=== PATIENT | female | born 1945 | race African-American/Black ===

== ENCOUNTER 2019-02-04 13:33 | Inpatient (IN) | payer OTHER ==
[2019-02-04 13:57] VITALS: BMI 44.1
--- NOTE | 2019-02-04 13:57 | PDOC ---
History of Present Illness - General Chief Complaint: Dialysis Shunt Problem Stated Complaint: FISTULA PROBLEM Time Seen by Provider: 02/04/19 13:56 - History of Present Illness Initial Comments: 02/04/19 14:14 The patient is a 73 year old female with a history of HTN, DM, HLD, ESRD on Dialysis (MWF) who presents for evaluation of a non-functional AV fistula. The patient reports that they attempted dialysis 1 day ago on Wednesday and were unable to access her fistula. She went for de-clotting and they attempted dialysis today and were still unable to access her fistula prompting her presentation to the ED for further evaluation. She states her last dialysis was 4 days ago on Wednesday. She otherwise denies fevers, chills, SOB, chest pain, nausea, vomiting, abdominal pain, or changes with bowel movements. Past History - Past Medical History Allergies/Adverse Reactions: Allergies Allergy/AdvReac Type Severity Reaction Status Date / Time No Known Allergies Allergy Verified 02/04/19 13:43 Home Medications: Ambulatory Orders Acetaminophen [Tylenol -] 1,000 mg PO TID PRN 02/04/19 Allopurinol [Zyloprim -] 100 mg PO ASDIR 02/04/19 Aspirin 81 mg PO DAILY 02/04/19 Calcium Acetate [Phoslo -] 667 mg PO TIDCM 02/04/19 Carvedilol [Coreg -] 6.25 mg PO BID 02/04/19 Folic Acid 0.8 mg PO DAILY 02/04/19 Heparin - 5,000 unit SQ BID 02/04/19 Insulin Lispro [Humalog] 0 unit SQ ASDIR 02/04/19 Oxycodone HCl 5 mg PO BID PRN 02/04/19 Pantoprazole Sodium [Protonix -] 40 mg PO DAILY 02/04/19 Sennosides [Senna Laxative] 2 tab PO DAILY 02/04/19 COPD: No Diabetes: Yes GI Disorders: Yes (gerd) Disorders: Yes (dialysis) HTN: Yes - Suicide/Smoking/Psychosocial Hx Smoking History: Never smoked Review of Systems - Review of Systems Comments:: 02/04/19 14:27 Constitutional: No fevers, chills, fatigue, malaise HEENT: No Rhinorrhea, nasal congestion, visual changes Cardiovascular: No chest pain, syncope, palpitations, lightheadedness Respiratory: No Cough, SOB, Hemoptysis, Gastrointestinal: No Abdominal pain, Nausea, Vomiting, Constipation, Diarrhea, Melena Genitourinary: No Dysuria, Frequency, Urgency, Hesitancy, Hematuria, Flank pain Musculoskeletal: No Myalgia, arthralgia Skin: No rashes, itching, bruising, pallor Neurologic: No Headache, Dizziness, Numbness, Weakness, or Tingling Psychiatric: No Hallucinations. No SI or HI *Physical Exam - Vital Signs Last Vital Signs Temp Pulse Resp BP Pulse Ox 97.9 F 78 18 97/62 100 02/04/19 13:53 02/04/19 13:53 02/04/19 13:53 02/04/19 13:56 02/04/19 13:53 - Physical Exam Comments: 02/04/19 14:28 General Appearance: Nourished. No Apparent Distress HEENT: No Pharyngeal Erythema, Tonsillar Exudate, Tonsillar Erythema Neck: No Cervical Lymphadenopathy Respiratory/Chest: Lungs Clear, Normal Breath Sounds. No Crackles, Rales, Rhonchi, Wheezing Cardiovascular: Regular Rhythm, Regular Rate. No Murmur, Gallops, Rubs Gastrointestinal/Abdominal: Normal Bowel Sounds, Soft. No Guarding, Rebound, Tenderness Musculoskeletal: No CVA Tenderness Extremity: Left AV fistula without palpable thrill. Normal Capillary Refill Integumentary: Normal Color, Dry, Warm Neurologic: Fully Oriented, Alert, Normal Mood/Affect, Normal Response, Heart Score/ECG Review #1 ECG reviewed & interpreted by me at: 14:29 General ECG Interpretation: Sinus Rhythm, Normal Rate, No acute ischemic changes Compared to previous ECG there are: Previous ECG unavail 02/04/19 14:29 1st degree AV block Left axis deviation Left Bundle Branch Block HR 72 QRS 162 QTc 540 ED Treatment Course - LABORATORY CBC & Chemistry Diagram: 02/04/19 15:15 02/04/19 15:15 Medical Decision Making - Medical Decision Making 02/04/19 14:30 The patient is a 73 year old female with a history of HTN, DM, HLD, ESRD on Dialysis (MWF) who presents for evaluation of a non-functional AV fistula. Given the patient's history and physical exam, it is likely the patient's AV fistula is non-functional. We will obtain a cbc, cmp, coags, ekg, chest plain film, duplex US to evaluate further. The patient will likely require admission for further management. We will continue to monitor and reassess while here in the ED. 02/04/19 15:38 US demonstrates a Patent AV fistula as read by our radiologist. We discussed the case with Dr. Badillo and Dr. Schroeder who agree that the patient can attempt to have dialysis today. We discussed the case with Dr. Reyez who accepted the patient for admission. We will continue to follow up on the patient's lab results. 02/04/19 16:34 CBC is unremarkable. Creatinine is elevated to 6.1. Potassium is unremarkable. *DC/Admit/Observation/Transfer Diagnosis at time of Disposition: AV fistula occlusion Qualifiers: Encounter type: initial encounter Qualified Code(s): T82.898A - Other specified complication of vascular prosthetic devices, implants and grafts, initial encounter - Discharge Dispostion Condition at time of disposition: Stable Decision to Admit order: Yes - Referrals - Patient Instructions - Post Discharge Activity
--- NOTE | 2019-02-04 14:43 | PDOC ---
Attending Attestation - Resident Resident Name: Bruce Granados - ED Attending Attestation I have performed the following: I have examined & evaluated the patient, The case was reviewed & discussed with the resident, I agree w/resident's findings & plan, Exceptions are as noted - Physicial Exam PE: 02/04/19 14:41 awake alert lungs clear bilaterally heart rrr no mrg abd soft nd nt obese. ext wwp. lue fistual no palp bruit or thrill. nuero alert oriented x 3. - Medical Decision Making 02/04/19 14:41 73 yo h/o esrd ( m/w/f) htn dm aicd, anemia, last dialysis was 4 days ago, with clotted upper ext fistula. tried to declot yesterday, was unable. no c/o sob no chest pain. on exam pt normal lung exam. fistual no bruit. differential: fluid overload, hyperK, anemia, clotted fistula. plan labs us access, cxr ekg. will d/w dr castaneda, on vasc surgery, and renal. pt will require admission for access and dialysis. <Billie Quinonez - Last Filed: 02/04/19 14:44> - HPI HPI: 02/04/19 14:44 The patient is a 73 year old male, with a significant past medical history of HTN, DM, HLD, and ESRD on Dialysis (M,W,F), who presents to the emergency department for an issue with her AV fistula. As per patient, at the dialysis facility on Wednesday they attempted to give her dialysis but, they could not access her port. He denies any recent chest pain or shortness of breath. He denies any recent dysuria, frequency, urgency or hematuria. Allergies: NKDA Last Dialysis: 02/01 Documentation prepared by Tracy Lezama, acting as medical record specialist for Billie Quinonez MD. <Tracy Lezama - Last Filed: 02/04/19 14:45> Heart Score/ECG Review #1 General ECG Interpretation: Sinus Rhythm, Normal Intervals, No acute ischemic changes Compared to previous ECG there are: Other (TWI I, AVLF, LBBB, left axis. no old comparison ekg) <Billie Quinonez - Last Filed: 02/04/19 14:44>
[2019-02-04 15:25] LABS: BASO % 2.4 % (0-2.0); HEMATOCRIT 40.8 % (32.4-45.2); HEMOGLOBIN 13.5 GM/dL (10.7-15.3); LYMPH % 33.7 % (8-40); MCH 28.6 pg (25.7-33.7); MEAN CELL VOLUME 86.7 fl (80-96); MEAN PLT VOLUME 8.4 fl (7.5-11.1); MONO % 6.9 % (3.8-10.2); PLATELET COUNT 315 K/MM3 (134-434); RDW 15.8 % (11.6-15.6)
[2019-02-04 15:49] LABS: INR 0.92 (0.83-1.09); PROTHROMBIN TIME (PATIENT) 10.8 SEC (9.7-13.0)
[2019-02-04 15:52] LABS: ACTIVATED PTT 34.6 SECONDS (25.2-36.5); ALBUMIN 3.6 g/dl (3.4-5.0); ALK PHOS 178 U/L (45-117); ANION GAP 9 MMOL/L (8-16); BILIRUBIN,TOTAL 0.6 mg/dL (0.2-1); BLOOD UREA NITROGEN 55 mg/dL (7-18); CALCIUM 9.7 mg/dL (8.5-10.1); CHLORIDE 96 mmol/L (98-107); CO2 30 mmol/L (21-32); CREATININE 6.1 mg/dL (0.55-1.3); GLUCOSE,RANDOM 128 mg/dL (74-106); SGOT/AST 14 U/L (15-37); SGPT/ALT 15 U/L (13-61); SODIUM 135 mmol/L (136-145); TOT PROT 7.4 g/dl (6.4-8.2)
--- NOTE | 2019-02-04 16:55 | CONSULT ---
Consult Consult Specialty:: Nephrology Reason for Consultation:: ESRD - History of Present Illness Chief Complaint: sent in for clotted access History of Present Illness: Pt is a 73 year old female with pmhx of ESRD, DM, HTN, and obesity who was sent in for inability to access her av fistula. She was last dialyzed on Wednesday. She went for a thrombectomy yesterday however the center was not able to canulate her today. She says she feels well. She follows with Dr Erazo in [place]. She denies fevers or chills. She denies shortness of breath. - History Source History Provided By: Patient, Medical Record - Past Medical History Cardio/Vascular: Yes: HTN, Hyperlipdemia Gastrointestinal: Yes: GERD Renal/: Yes: Renal Failure, Hemodialysis Rheumatology: Yes: Gout Endocrine: Yes: Diabetes Mellitus - Smoking History Smoking history: Never smoked Home Medications - Allergies Allergies/Adverse Reactions: Allergies Allergy/AdvReac Type Severity Reaction Status Date / Time No Known Allergies Allergy Verified 02/04/19 13:43 - Home Medications Home Medications: Ambulatory Orders Acetaminophen [Tylenol -] 1,000 mg PO TID PRN 02/04/19 Allopurinol [Zyloprim -] 100 mg PO ASDIR 02/04/19 Aspirin 81 mg PO DAILY 02/04/19 Calcium Acetate [Phoslo -] 667 mg PO TIDCM 02/04/19 Carvedilol [Coreg -] 6.25 mg PO BID 02/04/19 Folic Acid 0.8 mg PO DAILY 02/04/19 Heparin - 5,000 unit SQ BID 02/04/19 Insulin Lispro [Humalog] 0 unit SQ ASDIR 02/04/19 Oxycodone HCl 5 mg PO BID PRN 02/04/19 Pantoprazole Sodium [Protonix -] 40 mg PO DAILY 02/04/19 Sennosides [Senna Laxative] 2 tab PO DAILY 02/04/19 Family Disease History - Family Disease History Family History: Denies Review of Systems - Review of Systems Constitutional: reports: No Symptoms Eyes: reports: No Symptoms HENT: reports: No Symptoms Neck: reports: No Symptoms Cardiovascular: reports: No Symptoms Respiratory: reports: No Symptoms Gastrointestinal: reports: No Symptoms Genitourinary: reports: No Symptoms Musculoskeletal: reports: No Symptoms Integumentary: reports: No Symptoms Neurological: reports: No Symptoms Endocrine: reports: No Symptoms Hematology/Lymphatic: reports: No Symptoms Psychiatric: reports: No Symptoms Physical Exam Vital Signs: Vital Signs Temperature 97.9 F 02/04/19 13:53 Pulse Rate 78 02/04/19 13:53 Respiratory Rate 18 02/04/19 13:53 Blood Pressure 97/62 02/04/19 13:56 O2 Sat by Pulse Oximetry (%) 100 02/04/19 13:53 Constitutional: Yes: Calm Eyes: Yes: Conjunctiva Clear HENT: Yes: Atraumatic Neck: Yes: Supple Cardiovascular: Yes: S1, S2 Respiratory: Yes: CTA Bilaterally Gastrointestinal: Yes: Soft, Abdomen, Obese Musculoskeletal: Yes: WNL Extremities: Yes: Other (fistula with thrill and bruit) Edema: No Neurological: Yes: Oriented Psychiatric: Yes: Oriented Labs: CBC, BMP 02/04/19 15:15 02/04/19 15:15 Laboratory Tests 02/04/19 02/04/19 15:15 15:15 WBC 7.0 Hgb 13.5 Sodium 135 L Potassium 4.0 BUN 55 H Creatinine 6.1 H Imaging - Results Ultrasound: Report Reviewed Problem List - Problems (1) ESRD (end stage renal disease) Code(s): N18.6 - END STAGE RENAL DISEASE (2) Diabetes mellitus Code(s): E11.9 - TYPE 2 DIABETES MELLITUS WITHOUT COMPLICATIONS (3) AV fistula occlusion Code(s): T82.898A - OTH COMPLICATION OF VASCULAR PROSTH DEV/GRFT, INIT Qualifiers: Encounter type: initial encounter Qualified Code(s): T82.898A - Other specified complication of vascular prosthetic devices, implants and grafts, initial encounter Assessment/Plan Current Medications Generic Name Dose Route Start Last Admin Trade Name Freq PRN Reason Stop Dose Admin Aspirin 81 mg 02/05/19 10:00 Asa - PO DAILY MUSA Calcium Acetate 667 mg 02/04/19 17:30 Phoslo - PO TIDCM MSUA Carvedilol 6.25 mg 02/04/19 22:00 Coreg - PO BID MUSA Heparin Sodium (Porcine) 5,000 unit 02/04/19 22:00 Heparin - SQ BID MUSA Oxycodone HCl 5 mg 02/04/19 16:18 Roxicodone - PO Q12H PRN PAIN LEVEL 4 - 6 Pantoprazole Sodium 40 mg 02/05/19 10:00 Protonix - PO DAILY MUSA Senna 2 tab 02/05/19 10:00 Senna - PO DAILY MUSA Impression 1. ESRD 2. fistula malfunction 3. HTN 4. DM 5. gerd 6. HLD 7. obesity Plan - vascular eval - fistula has bruit and appear patent on ultrasound - renal diet once eating - discussed with ER - no indication for acute HD - repeat labs in am
[2019-02-04] MEDS: CALCIUM ACETATE 667 MG CAPSULE (FP) PO SCH (18:13)
[2019-02-04] MEDS ORDERED: CARVEDILOL 3.125 MG TABLET (FP) ONE (21:17)
[2019-02-04] MEDS ORDERED: HEPARIN NA (PORCINE) 5,000 UNITS/ML 1ML VIAL ONE (21:18)
[2019-02-04] MEDS: CARVEDILOL 6.25 MG TABLET (FP) PO SCH (21:34)
[2019-02-04] MEDS: HEPARIN NA (PORCINE) 5,000 UNITS/ML 1ML VIAL SQ SCH (21:34)
[2019-02-05] MEDS: CALCIUM ACETATE 667 MG CAPSULE (FP) PO SCH ×3 (08:45→17:53)
--- NOTE | 2019-02-05 10:30 | HP ---
Admitting History and Physical - Primary Care Physician PCP: Kellen Moran - Admission Chief Complaint: inability to access AVF History of Present Illness: ER HISTORY - History of Present Illness Initial Comments: 02/04/19 14:14 The patient is a 73 year old female with a history of HTN, DM, HLD, ESRD on Dialysis (MWF) who presents for evaluation of a non-functional AV fistula. The patient reports that they attempted dialysis 1 day ago on Wednesday and were unable to access her fistula. She went for de-clotting and they attempted dialysis today and were still unable to access her fistula prompting her presentation to the ED for further evaluation. She states her last dialysis was 4 days ago on Wednesday. She otherwise denies fevers, chills, SOB, chest pain, nausea, vomiting, abdominal pain, or changes with bowel movements. Pt examined by me on the floors Last dialysis was this past Wednesday - she missed her Wednesday dialysis due to inability to access the AVF No SOB, chest pain She is in [facility] for short term rehab and she tells me that she was due to for discharge home tomorrow History Source: Patient Limitations to Obtaining History: No Limitations - Past Medical History Cardiovascular: Yes: HTN, Hyperlipdemia Gastrointestinal: Yes: GERD Renal/: Yes: Renal Failure, Hemodialysis ...: No Rheumatology: Yes: Gout Endocrine: Yes: Diabetes Mellitus - Smoking History Smoking history: Never smoked - Alcohol/Substance Use Hx Alcohol Use: No Home Medications - Allergies Allergies/Adverse Reactions: Allergies Allergy/AdvReac Type Severity Reaction Status Date / Time No Known Allergies Allergy Verified 02/04/19 13:43 - Home Medications Home Medications: Ambulatory Orders Acetaminophen [Tylenol -] 1,000 mg PO TID PRN 02/04/19 Allopurinol [Zyloprim -] 100 mg PO ASDIR 02/04/19 Aspirin 81 mg PO DAILY 02/04/19 Calcium Acetate [Phoslo -] 667 mg PO TIDCM 02/04/19 Carvedilol [Coreg -] 6.25 mg PO BID 02/04/19 Folic Acid 0.8 mg PO DAILY 02/04/19 Heparin - 5,000 unit SQ BID 02/04/19 Insulin Lispro [Humalog] 0 unit SQ ASDIR 02/04/19 Oxycodone HCl 5 mg PO BID PRN 02/04/19 Pantoprazole Sodium [Protonix -] 40 mg PO DAILY 02/04/19 Sennosides [Senna Laxative] 2 tab PO DAILY 02/04/19 Review of Systems - Review of Systems Constitutional: denies: Chills Cardiovascular: denies: Chest Pain, Palpitations Physical Examination Vital Signs: Vital Signs Temperature 97.4 F L 02/05/19 06:04 Pulse Rate 67 02/05/19 06:04 Respiratory Rate 18 02/05/19 06:04 Blood Pressure 126/61 02/05/19 06:04 O2 Sat by Pulse Oximetry (%) 96 02/04/19 21:00 Constitutional: Yes: No Distress, Calm Cardiovascular: Yes: Regular Rate and Rhythm Respiratory: Yes: CTA Bilaterally Gastrointestinal: Yes: Normal Bowel Sounds, Soft, Abdomen, Obese. No: Tenderness Extremities: Yes: Other (left AVF +) Edema: No Psychiatric: Yes: Alert, Oriented Labs: CBC, BMP 02/04/19 15:15 02/04/19 15:15 Imaging - Results Chest X-ray: Image Reviewed (no congestion or infiltrate) EKG: Image Reviewed (Sinus) Problem List - Problems (1) AV fistula occlusion Code(s): T82.898A - H COMPLICATION OF VASCULAR PROSTH DEV/GRFT, INIT Qualifiers: Encounter type: initial encounter Qualified Code(s): T82.898A - Other specified complication of vascular prosthetic devices, implants and grafts, initial encounter (2) Diabetes mellitus Code(s): E11.9 - TYPE 2 DIABETES MELLITUS WITHOUT COMPLICATIONS (3) ESRD (end stage renal disease) Code(s): N18.6 - END STAGE RENAL DISEASE Assessment/Plan PLAN Doppler shows AVF is patent Renal eval noted will be dialysed tomorrow PT eval - to assess if pt can be discharged home tomorrow after dialysis
[2019-02-05] MEDS: HEPARIN NA (PORCINE) 5,000 UNITS/ML 1ML VIAL SQ SCH ×2 (11:32→21:49)
[2019-02-05] MEDS: SENNOSIDES 8.6MG TABLET (FP) PO SCH (11:32)
[2019-02-05] MEDS: PANTOPRAZOLE 40 MG TABLET (FP) PO SCH (11:32)
[2019-02-05] MEDS: ASPIRIN 81 MG CHEWABLE TABLETS PO SCH (11:32)
[2019-02-05] MEDS: CARVEDILOL 6.25 MG TABLET (FP) PO SCH ×2 (11:32→21:49)
[2019-02-05 13:38] LABS: ANION GAP 10 MMOL/L (8-16); BLOOD UREA NITROGEN 62 mg/dL (7-18); CALCIUM 9.5 mg/dL (8.5-10.1); CHLORIDE 97 mmol/L (98-107); CO2 29 mmol/L (21-32); CREATININE 6.7 mg/dL (0.55-1.3); GLUCOSE,RANDOM 155 mg/dL (74-106); POTASSIUM 4.1 mmol/L (3.5-5.1); SODIUM 136 mmol/L (136-145)
[2019-02-05] MEDS: oxyCODONE HCL 5 MG TABLET PO PRN (15:24)
--- NOTE | 2019-02-05 17:59 | PN ---
Progress Note, Physician History of Present Illness: Pt seen and examined at bedside. She is awake and alert. She denies shortness of breath or palpitations. - Current Medication List Current Medications: Active Medications Aspirin (Asa -) 81 mg PO DAILY [facility] Last Admin: 02/05/19 11:32 Dose: 81 mg Calcium Acetate (Phoslo -) 667 mg PO TIDCM [facility] Last Admin: 02/05/19 17:53 Dose: 667 mg Carvedilol (Coreg -) 6.25 mg PO BID [facility] Last Admin: 02/05/19 11:32 Dose: 6.25 mg Heparin Sodium (Porcine) (Heparin -) 5,000 unit SQ BID [facility] Last Admin: 02/05/19 11:32 Dose: 5,000 unit Oxycodone HCl (Roxicodone -) 5 mg PO Q12H PRN PRN Reason: PAIN LEVEL 4 - 6 Last Admin: 02/05/19 15:24 Dose: 5 mg Pantoprazole Sodium (Protonix -) 40 mg PO DAILY [facility] Last Admin: 02/05/19 11:32 Dose: 40 mg Senna (Senna -) 2 tab PO DAILY [facility] Last Admin: 02/05/19 11:32 Dose: 2 tab - Objective Vital Signs: Vital Signs Temperature 97.5 F L 02/05/19 14:29 Pulse Rate 70 02/05/19 14:29 Respiratory Rate 18 02/05/19 14:29 Blood Pressure 105/54 L 02/05/19 14:29 O2 Sat by Pulse Oximetry (%) 96 02/05/19 09:00 Constitutional: Yes: Calm Eyes: Yes: Conjunctiva Clear HENT: Yes: Atraumatic Neck: Yes: Supple Cardiovascular: Yes: S1, S2 Respiratory: Yes: CTA Bilaterally Gastrointestinal: Yes: Soft, Abdomen, Obese Musculoskeletal: Yes: WNL Extremities: Yes: Other (left arm fistula with thrill and bruit, faint) Neurological: Yes: Oriented Psychiatric: Yes: Oriented Labs: CBC, BMP 02/04/19 15:15 02/05/19 12:13 INR, PTT INR 0.92 (0.83-1.09) 02/04/19 15:15 Problem List - Problems (1) ESRD (end stage renal disease) Code(s): N18.6 - END STAGE RENAL DISEASE (2) Diabetes mellitus Code(s): E11.9 - TYPE 2 DIABETES MELLITUS WITHOUT COMPLICATIONS (3) AV fistula occlusion Code(s): T82.898A - OTH COMPLICATION OF VASCULAR PROSTH DEV/GRFT, INIT Qualifiers: Encounter type: initial encounter Qualified Code(s): T82.898A - Other specified complication of vascular prosthetic devices, implants and grafts, initial encounter Assessment/Plan Current Medications Generic Name Dose Route Start Last Admin Trade Name Freq PRN Reason Stop Dose Admin Aspirin 81 mg 02/05/19 10:00 02/05/19 11:32 Asa - PO 81 mg DAILY MUSA Administration Calcium Acetate 667 mg 02/04/19 17:30 02/05/19 17:53 Phoslo - PO 667 mg TIDCM MUSA Administration Carvedilol 6.25 mg 02/04/19 22:00 02/05/19 11:32 Coreg - PO 6.25 mg BID MUSA Administration Heparin Sodium (Porcine) 5,000 unit 02/04/19 22:00 02/05/19 11:32 Heparin - SQ 5,000 unit BID MUSA Administration Oxycodone HCl 5 mg 02/04/19 16:18 02/05/19 15:24 Roxicodone - PO 5 mg Q12H PRN Administration PAIN LEVEL 4 - 6 Pantoprazole Sodium 40 mg 02/05/19 10:00 02/05/19 11:32 Protonix - PO 40 mg DAILY MUSA Administration Senna 2 tab 02/05/19 10:00 02/05/19 11:32 Senna - PO 2 tab DAILY MUSA Administration Impression 1. ESRD 2. fistula malfunction 3. HTN 4. DM 5. gerd 6. HLD 7. obesity Plan - potassium stable - volume status is stable - pending vascular input - will likely need HD tomorrow - repeat labs in am - npo past midnight
[2019-02-06 07:31] LABS: BASO % 1.3 % (0-2.0); EOS % 4.6 % (0-4.5); HEMATOCRIT 34.9 % (32.4-45.2); HEMOGLOBIN 11.3 GM/dL (10.7-15.3); LYMPH % 35.5 % (8-40); MCH 27.9 pg (25.7-33.7); MCHC 32.3 g/dl (32.0-36.0); MEAN CELL VOLUME 86.5 fl (80-96); MEAN PLT VOLUME 8.8 fl (7.5-11.1); MONO % 7.3 % (3.8-10.2); NEUT % 51.3 % (42.8-82.8); PLATELET COUNT 293 K/MM3 (134-434); RBC 4.03 M/mm3 (3.60-5.2); RDW 16.1 % (11.6-15.6); WHITE BLOOD COUNT 6.6 K/mm3 (4.0-10.0)
[2019-02-06 07:59] LABS: ANION GAP 8 MMOL/L (8-16); BLOOD UREA NITROGEN 66 mg/dL (7-18); CHLORIDE 100 mmol/L (98-107); CO2 29 mmol/L (21-32); GLUCOSE,RANDOM 140 mg/dL (74-106); POTASSIUM 4.1 mmol/L (3.5-5.1); SODIUM 137 mmol/L (136-145)
[2019-02-06] MEDS: CALCIUM ACETATE 667 MG CAPSULE (FP) PO SCH ×3 (08:24→17:11)
[2019-02-06 09:07] LABS: CREATININE 7.5 mg/dL (0.55-1.3)
--- NOTE | 2019-02-06 09:11 | CONSULT ---
Consult Consult Specialty:: Vascualar Surgery Reason for Consultation:: Evalauation of left avg - Past Medical History Cardio/Vascular: Yes: HTN, Hyperlipdemia Gastrointestinal: Yes: GERD Renal/: Yes: Renal Failure, Hemodialysis ...: No Rheumatology: Yes: Gout Endocrine: Yes: Diabetes Mellitus - Alcohol/Substance Use Hx Alcohol Use: No - Smoking History Smoking history: Never smoked Home Medications - Allergies Allergies/Adverse Reactions: Allergies Allergy/AdvReac Type Severity Reaction Status Date / Time No Known Allergies Allergy Verified 02/04/19 13:43 - Home Medications Home Medications: Ambulatory Orders Acetaminophen [Tylenol -] 1,000 mg PO TID PRN 02/04/19 Allopurinol [Zyloprim -] 100 mg PO ASDIR 02/04/19 Aspirin 81 mg PO DAILY 02/04/19 Calcium Acetate [Phoslo -] 667 mg PO TIDCM 02/04/19 Carvedilol [Coreg -] 6.25 mg PO BID 02/04/19 Folic Acid 0.8 mg PO DAILY 02/04/19 Heparin - 5,000 unit SQ BID 02/04/19 Insulin Lispro [Humalog] 0 unit SQ ASDIR 02/04/19 Oxycodone HCl 5 mg PO BID PRN 02/04/19 Pantoprazole Sodium [Protonix -] 40 mg PO DAILY 02/04/19 Sennosides [Senna Laxative] 2 tab PO DAILY 02/04/19 Review of Systems - Review of Systems Constitutional: reports: No Symptoms Eyes: reports: No Symptoms HENT: reports: No Symptoms Neck: reports: No Symptoms Cardiovascular: reports: No Symptoms Respiratory: reports: No Symptoms Gastrointestinal: reports: No Symptoms Genitourinary: reports: No Symptoms Musculoskeletal: reports: No Symptoms Integumentary: reports: No Symptoms Neurological: reports: No Symptoms Endocrine: reports: No Symptoms Hematology/Lymphatic: reports: No Symptoms Psychiatric: reports: No Symptoms Physical Exam Vital Signs: Vital Signs Temperature 97.5 F L 02/06/19 05:56 Pulse Rate 65 02/06/19 05:56 Respiratory Rate 18 02/06/19 05:56 Blood Pressure 118/60 02/06/19 05:56 O2 Sat by Pulse Oximetry (%) 100 02/05/19 21:00 Constitutional: Yes: Well Nourished, No Distress, Calm Eyes: Yes: WNL, Conjunctiva Clear, EOM Intact HENT: Yes: WNL, Atraumatic, Normocephalic Neck: Yes: WNL, Supple, Trachea Midline Cardiovascular: Yes: WNL, Regular Rate and Rhythm Respiratory: Yes: WNL, Regular, CTA Bilaterally Gastrointestinal: Yes: WNL, Normal Bowel Sounds ...Rectal Exam: Yes: WNL Renal/: Yes: WNL Breast(s): Yes: WNL Musculoskeletal: Yes: WNL Extremities: Yes: WNL Integumentary: Yes: WNL Neurological: Yes: WNL, Alert, Oriented ...Motor Strength: WNL Psychiatric: Yes: WNL Labs: CBC, BMP 02/06/19 05:54 02/06/19 05:54 Problem List - Problems (1) AV fistula occlusion Assessment/Plan: Pt seen and examined. Dressing removed. Left avg with good bruit. Ultrasound shows patent left avg Pt goes to the [place] [facility] for avg. Pt went as recently as wednesday from [facility] to the [place]. Sent here on sat when [facility] had difficulty in cannulation. Please cannulate today in HD If unsuccessful - pt will need venogram. Colt Badillo DO Code(s): T82.898A - OTH COMPLICATION OF VASCULAR PROSTH DEV/GRFT, INIT Qualifiers: Encounter type: initial encounter Qualified Code(s): T82.898A - Other specified complication of vascular prosthetic devices, implants and grafts, initial encounter (2) ESRD (end stage renal disease) Code(s): N18.6 - END STAGE RENAL DISEASE
[2019-02-06] MEDS: CARVEDILOL 6.25 MG TABLET (FP) PO SCH ×2 (09:15→21:26)
[2019-02-06] MEDS: ASPIRIN 81 MG CHEWABLE TABLETS PO SCH (09:15)
[2019-02-06] MEDS: SENNOSIDES 8.6MG TABLET (FP) PO SCH (09:15)
[2019-02-06] MEDS: PANTOPRAZOLE 40 MG TABLET (FP) PO SCH (09:15)
[2019-02-06] MEDS: HEPARIN NA (PORCINE) 5,000 UNITS/ML 1ML VIAL SQ SCH ×2 (09:15→21:26)
--- NOTE | 2019-02-06 09:46 | PN ---
Progress Note (short form) - Note Progress Note: pt seen/ examined chart reviewed awake/ comfortable denies pain Vascular consult noted/ appreciated Vital Signs Temp 97.5 F L 02/06/19 05:56 Pulse 65 02/06/19 05:56 Resp 18 02/06/19 05:56 BP 118/60 02/06/19 05:56 Pulse Ox 100 02/05/19 21:00 Intake & Output 02/05/19 02/05/19 02/06/19 11:59 23:59 11:59 Intake Total 150 0 0 Balance 150 0 0 Weight 227 lb 11.2 oz Intake: IV 0 saline lock 0 Oral 150 0 0 Other: Voiding Method Diaper Diaper Diaper # Unmeasured Voids Void 1 1 Bowel Movement No Weight Measurement Method Standing Scale Active Medications Aspirin (Asa -) 81 mg PO DAILY [facility] Last Admin: 02/06/19 09:15 Dose: 81 mg Calcium Acetate (Phoslo -) 667 mg PO TIDCM [facility] Last Admin: 02/06/19 08:24 Dose: 667 mg Carvedilol (Coreg -) 6.25 mg PO BID [facility] Last Admin: 02/06/19 09:15 Dose: 6.25 mg Heparin Sodium (Porcine) (Heparin -) 5,000 unit SQ BID [facility] Last Admin: 02/06/19 09:15 Dose: 5,000 unit Oxycodone HCl (Roxicodone -) 5 mg PO Q12H PRN PRN Reason: PAIN LEVEL 4 - 6 Last Admin: 02/05/19 15:24 Dose: 5 mg Pantoprazole Sodium (Protonix -) 40 mg PO DAILY [facility] Last Admin: 02/06/19 09:15 Dose: 40 mg Senna (Senna -) 2 tab PO DAILY [facility] Last Admin: 02/06/19 09:15 Dose: 2 tab CBC, BMP 02/06/19 05:54 02/06/19 05:54 Physical Examination Constitutional: Yes: No Distress, Calm and comfortable Cardiovascular: Yes: Regular Rate and Rhythm Respiratory: Yes: CTA Bilaterally Gastrointestinal: Yes: Normal Bowel Sounds, Soft, Abdomen, Obese. No: Tenderness Extremities: Yes: Other (left AVF +) Bruiet + Edema: No Psychiatric: Yes: Alert, Oriented Imaging - Results Chest X-ray: Image Reviewed (no congestion or infiltrate) EKG: Image Reviewed (Sinus) Problem List - Problems (1) AV fistula occlusion Code(s): T82.898A - H COMPLICATION OF VASCULAR PROSTH DEV/GRFT, INIT Qualifiers: Encounter type: initial encounter Qualified Code(s): T82.898A - Other specified complication of vascular prosthetic devices, implants and grafts, initial encounter (2) Diabetes mellitus Code(s): E11.9 - TYPE 2 DIABETES MELLITUS WITHOUT COMPLICATIONS (3) ESRD (end stage renal disease) Code(s): N18.6 - END STAGE RENAL DISEASE Assessment/Plan Doppler shows AVF is patent Renal eval noted as well as Vascular will be dialysed today If no issues -- will d/c to [facility] later -- otherwise venogram to be considered will follow anticipate d/c later today. start on diet. discussed with nursing staff also
--- NOTE | 2019-02-06 10:17 | DS ---
Physical Examination Vital Signs: Vital Signs Temperature 97.5 F L 02/06/19 05:56 Pulse Rate 65 02/06/19 05:56 Respiratory Rate 18 02/06/19 05:56 Blood Pressure 118/60 02/06/19 05:56 O2 Sat by Pulse Oximetry (%) 100 02/05/19 21:00 Labs: CBC, BMP 02/06/19 05:54 02/06/19 05:54 Discharge Summary Reason For Visit: ARTERIOVENOUS FISTULA OCCLUSION Current Active Problems AV fistula occlusion (Acute) Diabetes mellitus (Acute) ESRD (end stage renal disease) (Acute) Condition: Stable - Instructions - Home Medications Comprehensive Discharge Medication List: Ambulatory Orders Acetaminophen [Tylenol .Extra-Strength -] 1,000 mg PO TID PRN 02/04/19 Allopurinol [Zyloprim -] 100 mg PO ASDIR 02/04/19 Aspirin 81 mg PO DAILY 02/04/19 Calcium Acetate [Phoslo -] 667 mg PO TIDCM 02/04/19 Carvedilol [Coreg -] 6.25 mg PO BID 02/04/19 Folic Acid 0.8 mg PO DAILY 02/04/19 Heparin - 5,000 unit SQ BID 02/04/19 Insulin Lispro [Humalog Kwikpen U-100] 0 unit SQ ASDIR 02/04/19 Oxycodone HCl 5 mg PO BID PRN 02/04/19 Pantoprazole Sodium [Protonix -] 40 mg PO DAILY 02/04/19 Sennosides [Senna Laxative] 2 tab PO DAILY 02/04/19
--- NOTE | 2019-02-06 10:33 | EKG ---
Test Reason : Blood Pressure : / mmHG Vent. Rate : 072 BPM Atrial Rate : 072 BPM P-R Int : 330 ms QRS Dur : 162 ms QT Int : 494 ms P-R-T Axes : 094 -37 147 degrees QTc Int : 540 ms SINUS RHYTHM WITH 1ST DEGREE A-V BLOCK WITH OCCASIONAL PREMATURE VENTRICULAR COMPLEXES LEFT AXIS DEVIATION LEFT BUNDLE BRANCH BLOCK ABNORMAL ECG NO PREVIOUS ECGS AVAILABLE Confirmed by SOFIA CAMPBELL MD ([id number]) on 02/06/2019 10:33:34 AM Referred By: Confirmed By:SOFIA CAMPBELL MD
[2019-02-06] MEDS ORDERED: SODIUM CHLORIDE 250 ML IV PRN (10:54)
[2019-02-06] MEDS ORDERED: HEPARIN NA (PORCINE) 5,000 UNITS/ML 1ML VIAL IVPUSH SCH (11:45)
--- NOTE | 2019-02-06 16:31 | PN ---
Progress Note, Physician History of Present Illness: Pt seen and examined at bedside. She tolerated HD. Graft functioned well. - Current Medication List Current Medications: Active Medications Aspirin (Asa -) 81 mg PO DAILY [facility] Last Admin: 02/06/19 09:15 Dose: 81 mg Calcium Acetate (Phoslo -) 667 mg PO TIDCM [facility] Last Admin: 02/06/19 12:25 Dose: Not Given Carvedilol (Coreg -) 6.25 mg PO BID [facility] Last Admin: 02/06/19 09:15 Dose: 6.25 mg Heparin Sodium (Porcine) (Heparin -) 5,000 unit SQ BID [facility] Last Admin: 02/06/19 09:15 Dose: 5,000 unit Heparin Sodium (Porcine) (Heparin -) 1,000 unit IVPUSH ONCE [facility] Stop: 02/06/19 18:00 Last Admin: 02/06/19 14:24 Dose: 1,000 unit Sodium Chloride (Normal Saline -) 250 mls @ 3,000 mls/hr IV PRN PRN PRN Reason: Hypotension during Dialysis Stop: 02/07/19 10:54 Oxycodone HCl (Roxicodone -) 5 mg PO Q12H PRN PRN Reason: PAIN LEVEL 4 - 6 Last Admin: 02/05/19 15:24 Dose: 5 mg Pantoprazole Sodium (Protonix -) 40 mg PO DAILY [facility] Last Admin: 02/06/19 09:15 Dose: 40 mg Senna (Senna -) 2 tab PO DAILY [facility] Last Admin: 02/06/19 09:15 Dose: 2 tab - Objective Vital Signs: Vital Signs Temperature 97.5 F L 02/06/19 15:53 Pulse Rate 78 02/06/19 15:53 Respiratory Rate 18 02/06/19 15:53 Blood Pressure 106/61 02/06/19 15:53 O2 Sat by Pulse Oximetry (%) 99 02/06/19 09:00 Constitutional: Yes: Calm Eyes: Yes: Conjunctiva Clear HENT: Yes: Atraumatic Neck: Yes: Supple Cardiovascular: Yes: S1, S2 Respiratory: Yes: CTA Bilaterally Gastrointestinal: Yes: Soft, Abdomen, Obese Genitourinary: Yes: WNL Musculoskeletal: Yes: WNL Extremities: Yes: Other (access with thrill and bruit) Edema: No Neurological: Yes: Oriented Psychiatric: Yes: Oriented Labs: CBC, BMP 04/15/19 05:54 02/06/19 05:54 INR, PTT INR 0.92 (0.83-1.09) 02/04/19 15:15 Problem List - Problems (1) ESRD (end stage renal disease) Code(s): N18.6 - END STAGE RENAL DISEASE (2) Diabetes mellitus Code(s): E11.9 - TYPE 2 DIABETES MELLITUS WITHOUT COMPLICATIONS (3) AV fistula occlusion Code(s): T82.898A - OTH COMPLICATION OF VASCULAR PROSTH DEV/GRFT, INIT Qualifiers: Encounter type: initial encounter Qualified Code(s): T82.898A - Other specified complication of vascular prosthetic devices, implants and grafts, initial encounter Assessment/Plan Current Medications Generic Name Dose Route Start Last Admin Trade Name Freq PRN Reason Stop Dose Admin Aspirin 81 mg 02/05/19 10:00 02/06/19 09:15 Asa - PO 81 mg DAILY [facility] Administration Calcium Acetate 667 mg 02/04/19 17:30 02/06/19 12:25 Phoslo - PO Not Given TIDCM [facility] Carvedilol 6.25 mg 02/04/19 22:00 02/06/19 09:15 Coreg - PO 6.25 mg BID [facility] Administration Heparin Sodium (Porcine) 5,000 unit 02/04/19 22:00 02/06/19 09:15 Heparin - SQ 5,000 unit BID [facility] Administration Heparin Sodium (Porcine) 1,000 unit 02/06/19 11:45 02/06/19 14:24 Heparin - IVPUSH 02/06/19 18:00 1,000 unit ONCE [facility] Administration Sodium Chloride 250 mls @ 3,000 mls/hr 02/06/19 10:54 Normal Saline - IV 02/07/19 10:54 PRN PRN Hypotension during Dialysis Oxycodone HCl 5 mg 02/04/19 16:18 02/05/19 15:24 Roxicodone - PO 5 mg Q12H PRN Administration PAIN LEVEL 4 - 6 Pantoprazole Sodium 40 mg 02/05/19 10:00 02/06/19 09:15 Protonix - PO 40 mg DAILY [facility] Administration Senna 2 tab 02/05/19 10:00 02/06/19 09:15 Senna - PO 2 tab DAILY [facility] Administration Impression 1. ESRD 2. fistula malfunction 3. HTN 4. DM 5. gerd 6. HLD 7. obesity Plan - HD today - pt tolerated HD - discussed with vascular, no further intervention - renal diet - had HD set up as outpt
[2019-02-06] MEDS: oxyCODONE HCL 5 MG TABLET PO PRN (18:25)
[2019-02-07] MEDS: CALCIUM ACETATE 667 MG CAPSULE (FP) PO SCH ×3 (07:43→16:36)
[2019-02-07] MEDS: PANTOPRAZOLE 40 MG TABLET (FP) PO SCH (09:19)
[2019-02-07] MEDS: ASPIRIN 81 MG CHEWABLE TABLETS PO SCH (09:19)
[2019-02-07] MEDS: HEPARIN NA (PORCINE) 5,000 UNITS/ML 1ML VIAL SQ SCH (09:19)
[2019-02-07] MEDS: SENNOSIDES 8.6MG TABLET (FP) PO SCH (09:19)
[2019-02-07] MEDS: CARVEDILOL 6.25 MG TABLET (FP) PO SCH (09:21)
[2019-02-07 10:11] VITALS: TEMP 97.7
--- NOTE | 2019-02-07 11:43 | DS ---
Physical Examination Vital Signs: Vital Signs Temperature 97.7 F 02/07/19 10:00 Pulse Rate 67 02/07/19 10:00 Respiratory Rate 18 02/07/19 10:00 Blood Pressure 117/59 L 02/07/19 10:00 O2 Sat by Pulse Oximetry (%) 100 02/07/19 09:00 Constitutional: Yes: No Distress, Calm Cardiovascular: Yes: Regular Rate and Rhythm Respiratory: Yes: CTA Bilaterally Gastrointestinal: Yes: Normal Bowel Sounds, Soft. No: Tenderness Edema: No Labs: CBC, BMP 02/06/19 05:54 02/06/19 05:54 Discharge Summary Reason For Visit: ARTERIOVENOUS FISTULA OCCLUSION Current Active Problems AV fistula occlusion (Acute) Diabetes mellitus (Acute) ESRD (end stage renal disease) (Acute) Hospital Course: Admitted for avf occlusion Doppler shows patent AVF she had dialysis yesterday-- graft worked well Pt is stable for dc home Condition: Stable - Instructions Disposition: HOME - Home Medications Comprehensive Discharge Medication List: Ambulatory Orders Acetaminophen [Tylenol .Extra-Strength -] 1,000 mg PO TID PRN 02/04/19 Allopurinol [Zyloprim -] 100 mg PO ASDIR 02/04/19 Aspirin 81 mg PO DAILY 02/04/19 Calcium Acetate [Phoslo -] 667 mg PO TIDCM 02/04/19 Carvedilol [Coreg -] 6.25 mg PO BID 02/04/19 Folic Acid 0.8 mg PO DAILY 02/04/19 Heparin - 5,000 unit SQ BID 02/04/19 Insulin Lispro [Humalog Kwikpen U-100] 0 unit SQ ASDIR 02/04/19 Oxycodone HCl 5 mg PO BID PRN 02/04/19 Pantoprazole Sodium [Protonix -] 40 mg PO DAILY 02/04/19 Sennosides [Senna Laxative] 2 tab PO DAILY 02/04/19
[2019-02-07 13:26] VITALS: BP 125/57; PULSE 64
--- NOTE | 2019-02-07 15:13 | PN ---
Progress Note, Physician History of Present Illness: Pt seen and examined at bedside. She is awake and alert. She denies shortness of breath. She will go to [facility] tomorrow for HD. - Current Medication List Current Medications: Active Medications Aspirin (Asa -) 81 mg PO DAILY [facility] Last Admin: 02/07/19 09:19 Dose: 81 mg Calcium Acetate (Phoslo -) 667 mg PO TIDCM [facility] Last Admin: 02/07/19 11:50 Dose: 667 mg Carvedilol (Coreg -) 6.25 mg PO BID [facility] Last Admin: 02/07/19 09:21 Dose: 6.25 mg Heparin Sodium (Porcine) (Heparin -) 5,000 unit SQ BID [facility] Last Admin: 02/07/19 09:19 Dose: 5,000 unit Oxycodone HCl (Roxicodone -) 5 mg PO Q12H PRN PRN Reason: PAIN LEVEL 4 - 6 Last Admin: 02/06/19 18:25 Dose: 5 mg Pantoprazole Sodium (Protonix -) 40 mg PO DAILY [facility] Last Admin: 02/07/19 09:19 Dose: 40 mg Senna (Senna -) 2 tab PO DAILY [facility] Last Admin: 02/07/19 09:19 Dose: 2 tab - Objective Vital Signs: Vital Signs Temperature 97.7 F 02/07/19 13:25 Pulse Rate 64 02/07/19 13:25 Respiratory Rate 20 02/07/19 13:25 Blood Pressure 125/57 L 02/07/19 13:25 O2 Sat by Pulse Oximetry (%) 100 02/07/19 09:00 Constitutional: Yes: Calm Eyes: Yes: Conjunctiva Clear HENT: Yes: Atraumatic Neck: Yes: Supple Cardiovascular: Yes: S1, S2 Respiratory: Yes: CTA Bilaterally Gastrointestinal: Yes: Normal Bowel Sounds, Soft Genitourinary: Yes: WNL Musculoskeletal: Yes: WNL Extremities: Yes: Other (graft with thrill and bruit) Neurological: Yes: Oriented Psychiatric: Yes: Oriented Labs: CBC, BMP 02/06/19 05:54 02/06/19 05:54 INR, PTT INR 0.92 (0.83-1.09) 02/04/19 15:15 Problem List - Problems (1) ESRD (end stage renal disease) Code(s): N18.6 - END STAGE RENAL DISEASE (2) Diabetes mellitus Code(s): E11.9 - TYPE 2 DIABETES MELLITUS WITHOUT COMPLICATIONS (3) AV fistula occlusion Code(s): T82.898A - OTH COMPLICATION OF VASCULAR PROSTH DEV/GRFT, INIT Qualifiers: Encounter type: initial encounter Qualified Code(s): T82.898A - Other specified complication of vascular prosthetic devices, implants and grafts, initial encounter Assessment/Plan Current Medications Generic Name Dose Route Start Last Admin Trade Name Freq PRN Reason Stop Dose Admin Aspirin 81 mg 02/05/19 10:00 02/07/19 09:19 Asa - PO 81 mg DAILY [facility] Administration Calcium Acetate 667 mg 02/04/19 17:30 02/07/19 11:50 Phoslo - PO 667 mg TIDCM [facility] Administration Carvedilol 6.25 mg 02/04/19 22:00 02/07/19 09:21 Coreg - PO 6.25 mg BID [facility] Administration Heparin Sodium (Porcine) 5,000 unit 02/04/19 22:00 02/07/19 09:19 Heparin - SQ 5,000 unit BID [facility] Administration Oxycodone HCl 5 mg 02/04/19 16:18 02/06/19 18:25 Roxicodone - PO 5 mg Q12H PRN Administration PAIN LEVEL 4 - 6 Pantoprazole Sodium 40 mg 02/05/19 10:00 02/07/19 09:19 Protonix - PO 40 mg DAILY [facility] Administration Senna 2 tab 02/05/19 10:00 02/07/19 09:19 Senna - PO 2 tab DAILY [facility] Administration Impression 1. ESRD 2. fistula malfunction 3. HTN 4. DM 5. gerd 6. HLD 7. obesity Plan - pt has HD set up as outpt tomorrow - she tolerated HD yesterday with 400 blood flow - graft is working - renal diet
[2019-02-08 04:15] LABS: HBSAG SCREEN Negative (Negative); HEP B CORE AB, TOT Negative (Negative)
== END 2019-02-07 17:35 | disposition home or self-care (01) | DRG 682 ==
LOC: JER 13:33 → JERBED 14:42 → J7W 22:33
PROVIDERS: ADMIT Internal Medicine; ATTEND Internal Medicine
PROC: 5A1D70Z Performance of Urinary Filtration, Intermittent, Less than 6 Hours Per Day (ICD-10-PCS; principal; 2019-02-06)
DX: I12.0 Hypertensive chronic kidney disease with stage 5 chronic kidney disease or end stage renal disease (principal); N18.6 End stage renal disease; T82.898A Other specified complication of vascular prosthetic devices, implants and grafts, initial encounter; Z68.41 Body mass index [BMI] 40.0-44.9, adult; Y83.8 Other surgical procedures as the cause of abnormal reaction of the patient, or of later complication, without mention of misadventure at the time of the procedure; E11.22 Type 2 diabetes mellitus with diabetic chronic kidney disease; E78.5 Hyperlipidemia, unspecified; K21.9 Gastro-esophageal reflux disease without esophagitis; I44.0 Atrioventricular block, first degree; I44.7 Left bundle-branch block, unspecified; M10.9 Gout, unspecified; E66.9 Obesity, unspecified; Z99.2 Dependence on renal dialysis
CPT/HCPCS: 36415; 71045-TC-FY; 80048; 80053; 82550; 84484; 85025; 85610; 85730; 86704; 86706; 86708; 86803; 87340; 93005; 93010; 93971; 97116-GP; 97162-GP; 99283-25; J1644